=== PATIENT | female | born 1960 | race Caucasian/White ===

== ENCOUNTER 2016-05-16 16:26 | Emergency (ER) | payer OTHER ==
[2016-05-16 17:19] VITALS: RESP 16
--- NOTE | 2016-05-16 18:12 | UCPHY ---
H & P Time Seen by Provider: 05/16/16 17:51 Patient Type: New HPI/ROS: This patient has a 2 week history of cough with fevers Sunday and Sunday, 3 days prior to arrival that have diminished but she now has increasing tightness to her cough. She also developed a hoarse voice over the past 2 days. She thinks that her symptoms are worsening and came in for evaluation for potential bronchitis. She notes no clear exacerbating or alleviating factors. ROS: No high fevers or chills. No significant fatigue. She HEENT: Mild nasal congestion. No facial pain. She still tolerating good p.o. intake despite the sore throat. She ranks the sore throat is mild to moderate in intensity. No ear pain. Pulmonary: No pleuritic pain. No respiratory distress. No hemoptysis. Cardiovascular: No lightheadedness. No leg swelling or calf pain. GI: No vomiting. 10 point ROS is otherwise negative Past Medical/Surgical History: Otherwise healthy Smoking Status: Never smoked Physical Exam: Physical Exam Vital signs are normal. General: No acute distress HEENT: Nose: Clear discharge bilaterally. No sinus tenderness to percussion. Ears: External canals and tympanic membranes are clear with no erythema or abnormal findings bilaterally. Oropharynx: No erythema or exudates. She does have a hoarse voice. No drooling or stridor. Eyes: Pupils equal and react to light. Extraocular motions are intact. Neck is supple Lungs: Bilateral expiratory wheeze-mild with minimal rhonchi. No rales. Cardiac: Regular rate and rhythm with no murmur gallop or rub Skin: No rash or pallor. Neuro: Alert with no focal deficits noted. Initial differential diagnosis: URI with cough, bacterial bronchitis, viral bronchitis, pneumonia, laryngitis Constitutional: Initial Vital Signs Temperature (C) 36.5 C 05/16/16 17:13 Heart Rate 74 05/16/16 17:13 Respiratory Rate 16 05/16/16 17:13 Blood Pressure 112/71 05/16/16 17:13 O2 Sat (%) 95 05/16/16 17:13 O2 Delivery Mode Room Air Allergies/Adverse Reactions: No Known Allergies Allergy (Unverified 08/22/09 22:00) Home Medications: Medication Instructions Recorded NO HOME MEDS 09/13/09 Albuterol Hfa Anes Only [Proair 2 puffs IH Q4 PRN #1 mdi 05/16/16 Hfa Icu (*)] Azithromycin [Zithromax] 250 mg PO DAILY #6 tab 05/16/16 Guaifenesin/Codeine Phosphate 5 - 10 ml PO Q6 PRN #120 ml 05/16/16 [Guaifenesin-Codeine Liquid] MDM/Departure - [facility] ED Course/Re-evaluation: This patient appears clinically well though with a duration of 2 weeks with her bronchitis will cover her with a macrolide antibiotic. I do not think she has a lower respiratory infection. - Depart Disposition: Home, Routine, Self-Care Clinical Impression: Laryngitis Acute bronchitis Qualifiers: Bronchitis organism: unspecified organism Qualified Code(s): J20.9 - Acute bronchitis, unspecified Condition: Good Instructions: Laryngitis (ED), Acute Bronchitis (ED) Additional Instructions: Diagnosis: 1. Acute bronchitis 2. Laryngitis Plan: Humidifier Albuterol inhaler with spacer for cough, wheeze or shortness of breath Guaifenesin with codeine for cough prevents sleep at night Zithromax antibiotic Return for any significant worsening despite the treatment plan Prescriptions: Albuterol Hfa Anes Only [Proair Hfa Icu (*)] 2 puffs IH Q4 PRN #1 mdi PRN Reason: Wheezing Azithromycin [Zithromax] 250 mg PO DAILY #6 tab Guaifenesin/Codeine Phosphate [Guaifenesin-Codeine Liquid] 5 - 10 ml PO Q6 PRN # 120 ml PRN Reason: Cough Referrals: Una Gallardo MD [Primary Care Provider] - As per Instructions - PQRS PQRS Measurement: NA
[2016-05-16 18:45] VITALS: BP 116/80; PULSE 76; TEMP 97.9; O2SAT 96
== END 2016-05-16 18:37 | disposition home or self-care (01) ==
LOC: CED 16:26
DX: J20.9 Acute bronchitis, unspecified (principal); J04.0 Acute laryngitis
CPT/HCPCS: G0463-PO

== ENCOUNTER → 2016-12-14 | Outpatient (CLI) | payer OTHER | LOC: BRMIMAGING 14:35 | PROVIDERS: ATTEND Physician Assistant ==

== ENCOUNTER 2017-01-09 02:52 | Emergency (ER) | payer OTHER ==
--- NOTE | 2017-01-09 02:56 | EDPHY ---
H & P Time Seen by Provider: 01/09/17 02:55 HPI/ROS: CHIEF COMPLAINT: severe left lower quadrant pain HISTORY OF PRESENT ILLNESS: medically stable 48-year-old female was in her usual state of good health until approximately 1 and 0.5 hours prior to admission. She was awake, preparing for bed. She started with sudden onset of left lower quadrant pain describes as a severe pain, sharp intense. It was localized and did not radiate nor did migrate. This is persisted. At 1 point when she arrived in the driveway here at the hospital she actually became diaphoretic and vomited. It was at that point when she was extremely in pain. Pain was so severe she cannot taking medicines that she was going to hold down in attempt to relieve the pain. Emesis was non bloody. Early today she felt well. Took dinner uneventfully. She an uneventful day without any sort of sort of abdominal pain. There is no dysuria frequency. She had no anorexia or nausea vomiting or diarrhea-until the episode of nausea tonight. There is no diarrhea. [facility] drug monitoring program checked, she is not in there. Pt queried and denies: prior hx of substance abuse, family history of substance abuse or current or prior psychiatric history. No family or personal known history of an aortic dissection. No collagen vascular disorder such as Marfan's or earlier dominant syndrome. REVIEW OF SYSTEMS: Constitutional: No fever, no chills. Cardiovascular: No chest pain, no palpitations. Respiratory: No cough, shortness of breath, or wheezing. Gastrointestinal: No nausea vomiting or diarrhea. No abdominal pain. Genitourinary: No hematuria or frequency. Musculoskeletal: No back pain. No flank pain. 10 point ROS otherwise negative Source: Patient Exam Limitations: No limitations - Medical/Surgical History Hx Asthma: No Hx Chronic Respiratory Disease: No Hx Diabetes: No Hx Cardiac Disease: No Hx Renal Disease: No Hx Cirrhosis: No Hx Alcoholism: No Hx HIV/AIDS: No Hx Splenectomy or Spleen Trauma: No Other PMH: GB. Tonsilectomy. Knee surg. Kidney stone 10 years ago - Family History Significant Family History: No pertinent family hx - Social History Smoking Status: Never smoked Alcohol Use: None Drug Use: None - Physical Exam Exam: General Appearance: Alert, under to pain. No diaphoresis at this time no diaphoresis at this time Afebrile. Normal phonation. No respiratory distress. Eyes: Pupils equal and round no pallor or injection, she looks pale. No icterus ENT, Mouth: Mucous membranes moist. Pharynx without erythema or exudate. TM Clear. Neck: No adenopathy. Supple. No JVD. Respiratory: There are no retractions, lungs are clear to auscultation. Chest wall: Nontender to palpation. No crepitus. Cardiovascular: Regular rate and rhythm. Abdomen: Soft, nondistended. There is some mild tenderness in the left lower quadrant but no where in the magnitude one would expect if there was an intra- abdominal process versus a retroperitoneal process Femoral pulses equal. Neurological: Ox3. No motor weakness. Sensation intact. Gait nl. Skin: Warm and dry, no rashes. Conjunctiva pink though she is pale Musculoskeletal: No joint swelling. Extremities: No edema. Psychiatric: Normal affect. Patient is oriented X 3. There is no agitation Constitutional: Initial Vital Signs Temperature (C) 36.7 C 01/09/17 02:56 Heart Rate 69 01/09/17 02:56 Respiratory Rate 16 01/09/17 02:56 Blood Pressure 149/87 H 01/09/17 02:56 O2 Sat (%) 96 01/09/17 02:56 O2 Delivery Mode Room Air Allergies/Adverse Reactions: No Known Allergies Allergy (Unverified 08/22/09 22:00) Home Medications: Medication Instructions Recorded NO HOME MEDS 09/13/09 Indomethacin [Indocin 25 mg (*)] 50 mg PO TID #30 cap 01/09/17 Ondansetron HCl [Zofran] 8 mg PO TID #6 tablet 01/09/17 oxyCODONE HCL/ACETAMINOPHEN 1 - 2 each PO Q6 PRN #8 tablet 01/09/17 [Percocet 5-325 mg Tablet] Medical Decision Making - Diagnostics Imaging Results: CT scan pelvis without IV contrast, as interpreted by the radiologist and discussed with radiologist and reviewed by me: 1 mm stone that has passed into the bladder, [id number] hydroureter, with a large, 10 mm stone in the collecting system, on the left. Imaging: Discussed imaging studies w/ adjunct spanish instructor Radiologist ED Course/Re-evaluation: Should be discussed pain management. She will had driven here and wanted to drive home thus we made a plan together of given her Zofran and Toradol for symptomatic management, both IV. The Toradol worked well. Subsequently she was proceed to CT scan without IV contrast the stone in the bladder 1 mm with a hydroureter. Also, there is a clinically in a 10 mm stone in the left collecting system we discussed together. Further, as she is traveling later today to [place] for the holiday we discussed air travel in the setting of abdominal pain and renal colic as well as appropriate analgesic management. The [place] drug monitoring program was queried and she is not present in there. Differential Diagnosis: Differential diagnosis includes, but is not limited to: Diverticulitis, hepatitis, pancreatitis, renal colic, kidney stones, ureterolithiasis, appendicitis, mesenteric adenitis, food poisoning, bacterial dysentery, aortic aneuysm, aortc dissection.. - Data Points Laboratory Results: Laboratory Results 01/09/17 03:17 Medications Given: Discontinued Medications Ketorolac Tromethamine (Toradol) 30 mg IVP EDNOW ONE Stop: 01/09/17 03:11 Last Admin: 01/09/17 03:29 Dose: 30 mg Ondansetron HCl (Zofran) 8 mg IVP ONCE ONE Stop: 01/09/17 03:11 Last Admin: 01/09/17 03:29 Dose: 4 mg Departure - Departure Disposition: Home, Routine, Self-Care Clinical Impression: Renal colic on left side Condition: Good Instructions: Renal Colic (ED) Additional Instructions: Strain your urine. If you get a stone, take it to your Urologist or PCP. Return immediately if fever Though your pain is controlled, it may come back. Thus, do fill your pain medication and save it accordingly. Take the INDOCIN for the next 4 days. Referrals: Ana Llanos MD [Medical Doctor] - 2-3 days, call for appt. (10 mm collecting system stone on the left. 1 mm stone in the bladder.) Prescriptions: Indomethacin [Indocin 25 mg (*)] 50 mg PO TID #30 cap Ondansetron HCl [Zofran] 8 mg PO TID #6 tablet oxyCODONE HCL/ACETAMINOPHEN [Percocet 5-325 mg Tablet] 1 - 2 each PO Q6 PRN #8 tablet PRN Reason: moderate to severe pain
[2017-01-09 03:00] VITALS: PULSE 69; RESP 16
[2017-01-09] MEDS ORDERED: ONDANSETRON 4 MG/2 ML VIAL IVP ONE (03:10)
[2017-01-09] MEDS ORDERED: KETOROLAC 30 MG/1 ML SDV IVP ONE (03:10)
[2017-01-09 03:35] LABS: CALCIUM 9.3 mg/dL (8.5-10.4); POTASSIUM 3.9 mEq/L (3.5-5.2)
[2017-01-09 03:42] LABS: COLOR YELLOW; LEUKOCYTE ESTERASE,URINE NEGATIVE (NEGATIVE); NITRITE,URINE NEGATIVE (NEGATIVE)
[2017-01-09 04:10] LABS: MUCUS 2+ /lpf (NONE-1+)
[2017-01-09 04:38] VITALS: BP 111/59; TEMP 98.2; O2SAT 94
== END 2017-01-09 04:38 | disposition home or self-care (01) ==
LOC: CED 02:52
DX: N23 Unspecified renal colic (principal)
CPT/HCPCS: 74176-PO; 80048-PO; 81003-PO; 81015-PO; 96374; J1885; J2405

== ENCOUNTER → 2017-02-01 | Outpatient (CLI) | payer OTHER | LOC: CIMAGING 10:27 | PROVIDERS: ATTEND Internal Medicine | DX: Z12.31 Encounter for screening mammogram for malignant neoplasm of breast (principal) | CPT/HCPCS: G0202 ==

== ENCOUNTER → 2017-03-05 | Outpatient (CLI) | payer OTHER | LOC: CIMAGING 21:43 | PROVIDERS: ATTEND Urology | DX: N20.0 Calculus of kidney (principal) | CPT/HCPCS: 74018-PO ==

== ENCOUNTER → 2018-02-04 | Outpatient (CLI) | payer OTHER | LOC: CIMAGING 09:55 | PROVIDERS: ATTEND Internal Medicine | DX: Z12.31 Encounter for screening mammogram for malignant neoplasm of breast (principal) ==